=== PATIENT | female | born 1960 | race Caucasian/White ===

== ENCOUNTER 2017-06-19 17:19 | Emergency (ER) | payer OTHER ==
[2017-06-19 17:59] LABS: ADD MAN DIFF? NO
[2017-06-19] MEDS: morphine 4 MG/ML VIAL IV (17:59)
[2017-06-19] MEDS: ONDANSETRON 4 MG INJ IV (17:59)
[2017-06-19] MEDS: SOD CHLORIDE 0.9% 1,000 ML IV (17:59)
[2017-06-19 18:02] LABS: WHITE BLOOD COUNT 7.8 10^3/ul (4.8-10.8)
[2017-06-19 18:02] LABS: BASOPHIL # 0.1 10^3/ul (0.0-0.1); BASOPHILS % 0.8 % (0.0-2.0); EOSINOPHILS # 0.3 10^3/ul (0.0-0.5); HEMATOCRIT 36.4 % (37.0-47.0); HEMOGLOBIN 11.6 g/dl (12.0-16.0); LYMPHOCYTES # 2.4 10^3/ul (0.8-2.9); LYMPHOCYTES % 31.4 % (15.0-51.0); MEAN CORPUSCULAR HEMOGLOBIN 27.5 pg (29.0-33.0); MEAN CORPUSCULAR HGB CONC 31.9 g/dl (32.0-37.0); MEAN CORPUSCULAR VOLUME 86.3 fl (82.0-101.0); MEAN PLATELET VOLUME 8.8 fl (7.4-10.4); MONOCYTE # 0.6 10^3/ul (0.3-0.9); MONOCYTES % 7.1 % (0.0-11.0); NEUTROPHIL # 4.4 10^3/ul (1.6-7.5); NEUTROPHILS % 56.3 % (39.0-77.0); PLATELET COUNT 374 10^3/UL (140-415); RED BLOOD COUNT 4.22 10^6/ul (4.20-5.40); RED CELL DISTRIBUTION WIDTH 15.9 % (11.5-14.5)
[2017-06-19 18:23] LABS: INR 0.95; PROTIME 12.8 Sec (11.9-14.9)
[2017-06-19 18:24] LABS: PARTIAL THROMBOPLASTIN TIME 27.4 Sec (25.0-35.0)
[2017-06-19 18:38] LABS: ALANINE AMINOTRANSFERASE 36 IU/L (13-69); ALBUMIN 4.3 g/dl (3.3-4.9); ALBUMIN/GLOBULIN RATIO 1.02; ALKALINE PHOSPHATASE 163 IU/L (42-121); ANION GAP 17 (8-16); ASPARTATE AMINO TRANSFERASE 31 IU/L (15-46); BLOOD UREA NITROGEN 13 mg/dl (7-20); CALCIUM 9.1 mg/dl (8.4-10.2); CARBON DIOXIDE 29 mmol/L (21-31); CHLORIDE 106 mmol/L (97-110); CREATININE 0.73 mg/dl (0.44-1.00); GLUCOSE 103 mg/dl (70-220); LIPASE 151 U/L (23-300); POTASSIUM 4.3 mmol/L (3.5-5.1); SODIUM 148 mmol/L (135-144); TOTAL PROTEIN 8.5 g/dl (6.1-8.1)
[2017-06-19] MEDS: DICYCLOMINE 20 MG INJ IM (21:55)
== END 2017-06-19 22:03 | disposition home or self-care (01) ==
LOC: E/R 17:19
DX: K80.20 Calculus of gallbladder without cholecystitis without obstruction (principal); R40.2142 Coma scale, eyes open, spontaneous, at arrival to emergency department; R40.2252 Coma scale, best verbal response, oriented, at arrival to emergency department; R40.2362 Coma scale, best motor response, obeys commands, at arrival to emergency department
CPT/HCPCS: 36415; 74176; 76705; 80053; 83690; 85025; 85610; 85730; 96372; 96374; 96375; 99285-25

== ENCOUNTER 2018-10-14 09:33 | Emergency (ER) | payer OTHER | END 2018-10-14 10:12 | disposition home or self-care (01) | LOC: FTE 10:12 | DX: H10.13 Acute atopic conjunctivitis, bilateral (principal); Z79.82 Long term (current) use of aspirin ==